=== PATIENT | female | born 2000 | race Native Hawaiian/Other Pacific Islander ===

== ENCOUNTER 2020-11-06 11:24 | Emergency (ER) | payer OTHER ==
[~2020-11-06] VITALS: Ht 170.2 cm; Wt 77.1 kg
[2020-11-06 15:07] VITALS: BP 130/78; TEMP 99.4
== END 2020-11-06 15:08 | disposition home or self-care (01) ==
LOC: ED 11:24
DX: R07.89 Other chest pain (principal); R10.84 Generalized abdominal pain
CPT/HCPCS: 80307; 81025; 93005; 99283

== ENCOUNTER 2020-12-20 16:27 | Emergency (ER) | payer OTHER ==
[~2020-12-20] VITALS: Ht 170.2 cm; Wt 77.1 kg
[2020-12-20 17:55] VITALS: BP 113/67; TEMP 98.7
== END 2020-12-20 17:55 | disposition home or self-care (01) ==
LOC: ED 16:27
DX: J02.0 Streptococcal pharyngitis (principal); Z20.822 Contact with and (suspected) exposure to COVID-19
CPT/HCPCS: 87635; 87651; 96372; 99283; J0696; U0003

== ENCOUNTER 2021-03-08 14:25 | Emergency (ER) | payer OTHER ==
[~2021-03-08] VITALS: Ht 170.2 cm; Wt 77.1 kg
[2021-03-08 14:35] VITALS: BP 128/62; TEMP 97.3
== END 2021-03-08 15:46 | disposition home or self-care (01) ==
LOC: ED 14:25
DX: N39.0 Urinary tract infection, site not specified (principal)
CPT/HCPCS: 81000; 81025; 87086; 87088; 87502; 87651; 96372; 99283; J0696

== ENCOUNTER 2021-06-22 08:44 | Emergency (ER) | payer OTHER ==
[~2021-06-22] VITALS: Ht 170.2 cm; Wt 87.5 kg
[2021-06-22 09:58] VITALS: BP 101/58; TEMP 98.7
== END 2021-06-22 09:58 | disposition home or self-care (01) ==
LOC: ED 08:44
DX: N92.5 Other specified irregular menstruation (principal); Z32.02 Encounter for pregnancy test, result negative
CPT/HCPCS: 81000; 81025; 99283

== ENCOUNTER 2021-07-08 11:20 | Emergency (ER) | payer OTHER ==
[~2021-07-08] VITALS: Ht 170.2 cm; Wt 87.5 kg
[2021-07-08 11:24] VITALS: BP 122/71; TEMP 97.8
== END 2021-07-08 12:18 | disposition home or self-care (01) ==
LOC: ED 11:20
PROC: 0HQFXZZ Repair Right Hand Skin, External Approach (ICD-10-PCS; principal; 2021-07-08)
DX: S61.210A Laceration without foreign body of right index finger without damage to nail, initial encounter (principal); W25.XXXA Contact with sharp glass, initial encounter; Y92.89 Other specified places as the place of occurrence of the external cause
CPT/HCPCS: 90715; 99282

== ENCOUNTER 2021-09-17 16:15 | Emergency (ER) | payer OTHER ==
[~2021-09-17] VITALS: Ht 170.2 cm; Wt 87.5 kg
[2021-09-17] MEDS ORDERED: CLEOCIN150 MG PO (16:46)
[2021-09-17 16:50] VITALS: BP 141/65; TEMP 98.4
== END 2021-09-17 16:50 | disposition home or self-care (01) ==
LOC: ED 16:15
DX: K02.9 Dental caries, unspecified (principal)
CPT/HCPCS: 99281

== ENCOUNTER 2022-01-04 11:51 | Emergency (ER) | payer OTHER ==
[~2022-01-04] VITALS: Ht 170.2 cm; Wt 87.5 kg
[~2022-01-04 11:51] MED LIST: CLEOCIN150 MG PO
[2022-01-04 11:55] VITALS: BP 113/68; TEMP 97.7
== END 2022-01-04 14:00 | disposition home or self-care (01) ==
LOC: ED 11:51
DX: J10.1 Influenza due to other identified influenza virus with other respiratory manifestations (principal); Z20.822 Contact with and (suspected) exposure to COVID-19; F17.210 Nicotine dependence, cigarettes, uncomplicated
CPT/HCPCS: 87502; 87635; 87651; 99283; U0003

== ENCOUNTER 2022-06-25 16:43 | Emergency (ER) | payer OTHER ==
[~2022-06-25] VITALS: Ht 172.7 cm; Wt 86.2 kg
[2022-06-25 16:50] VITALS: TEMP 97.8
[2022-06-25 17:22] LABS: PLATELET COUNT 259 K/uL (152-353)
[2022-06-25 17:32] LABS: POTASSIUM 4.1 mmol/L (3.6-5.2)
[2022-06-25 19:23] VITALS: BP 125/74
== END 2022-06-25 19:23 | disposition home or self-care (01) ==
LOC: ED 16:43
PROVIDERS: Emergency Medicine
DX: R10.31 Right lower quadrant pain (principal); R10.12 Left upper quadrant pain
CPT/HCPCS: 80053; 81002; 81025; 85027; 96360; 96372; 99284; J1885